=== PATIENT | male | born 1985 | race African-American/Black ===

== ENCOUNTER 2019-03-14 19:46 | Emergency (ER) | payer BC, OTHER ==
--- NOTE | 2019-03-14 21:01 | RAD ---
TWO VIEWS OF THE RIGHT FOREARM: 03/14/19 COMPARISON: None. HISTORY: Injury, trauma, pain. FINDINGS: No displaced fracture or evidence of dislocation is seen. There is dorsal soft tissue swelling overlying the mid shaft right ulna on the lateral view. IMPRESSION: No acute fracture or dislocation. POS: [facility]
== END 2019-03-14 20:53 | disposition home or self-care (01) ==
LOC: NAV ERS 19:46
DX: S50.11XA Contusion of right forearm, initial encounter (principal); V80.010A Animal-rider injured by fall from or being thrown from horse in noncollision accident, initial encounter
CPT/HCPCS: 99283

== ENCOUNTER 2021-02-10 07:25 | Emergency (ER) | payer OTHER ==
[2021-02-10] MEDS ORDERED: Dexamethasone 4 MG TAB ONE (08:01)
[2021-02-10] MEDS ORDERED: Acetaminophen 500 MG TAB ONE (08:01)
[2021-02-10 09:15] LABS: SARS-CoV-2 NAA Rapid Test DETECTED (NotDetected)
== END 2021-02-10 09:30 | disposition home or self-care (01) ==
LOC: NAV ERS 07:25
DX: U07.1 COVID-19 (principal)
CPT/HCPCS: 0240U; 99284; J8540